=== PATIENT | female | born 1945 | race Caucasian/White ===

== ENCOUNTER → 2017-11-18 | Outpatient (CLI) | payer MEDICARE, OTHER | END | disposition home or self-care (01) | LOC: PCVCIMAG 16:00 | DX: I65.23 Occlusion and stenosis of bilateral carotid arteries (principal); I63.9 Cerebral infarction, unspecified; E78.00 Pure hypercholesterolemia, unspecified; I45.10 Unspecified right bundle-branch block; E11.9 Type 2 diabetes mellitus without complications; I35.0 Nonrheumatic aortic (valve) stenosis; R09.89 Other specified symptoms and signs involving the circulatory and respiratory systems; Z79.82 Long term (current) use of aspirin; Z79.899 Other long term (current) drug therapy | CPT/HCPCS: 80061; 93005; 93880; G0463 ==

== ENCOUNTER → 2017-11-28 | Outpatient (CLI) | payer MEDICARE, OTHER ==
[~2017-11-28] MED LIST: REGADENOSON 0.4 MG/5 ML DISP.SYRIN. IV ONE
--- NOTE | 2017-12-01 17:21 | PCVCIMAG ---
APPROVED REPORT Imaging Protocol: Rest Tc-99m/Stress Tc-99m 1 day Study performed: 11/28/2017 09:17:02 Indication: Chest pain, RBBB, HTN Patient Location: Out-Patient Stress Nurse: Mena Henson RN [place] Tech:MAULIK Lorenzo Ht: 5 ft 8 in Wt: 240 lbs BSA: 2.21 m2 HR: 67 bpm BP: 182/76 mmHg BMI: 36.4 Medical History Medications: Aspirin, atorvastatin, glyburide, metformin, lisinopril Allergies: No known drug allergies Cardiac Risk Factors: Age, HTN, Hyperlipidemia, DM, CVD, Pretest Chest Pain Characteristics: No chest pain Physical Disabilities: Knees Resting Data Rest SPECT myocardial perfusion imaging was performed in supine position 45 minutes following the intravenous injection of 10.5 mCi of Tc-99m Sestamibi. Time of rest injection: 914 Date: 11/28/2017 Administration Route: IV Administration Site: Left AC Pharmacologic Stress Pharmacologic stress test was performed by injecting Regadenoson 0.4 mg IV push over 10-15 seconds immediately followed by the intravenous injection of 33.8 mCi of Tc-99m Sestamibi. Time of stress injection: 5 Date: 11/28/2017 Administration Route: IV Administration Site: Left AC Gated Stress SPECT was performed 45 minutes after stress injection. The images were gated to evaluate regional wall motion and calculate left ventricular ejection fraction. Stress Test Details Stress Test: Pharmacologic stress testing performed using 0.4 mg of regadenoson per 5 mL given IV over 10 seconds. Reason for pharmacologic stress test: KNEE. HRMax Heart Rate (APMHR): 148 bpm Resting HR: 67 bpmTarget HR (85% APMHR): 125 bpm Max HR Achieved: 87 bpm % of APMHR: 58 Recovery HR: 81 bpm BP Resting BP: 182/76 mmHg Recovery BP: 156/66 mmHg ECG Resting ECG: SR with R BBB Stress ECG: SR with R BBB Arrhythmia: PVCs Recovery ECG: SR with R BBB Clinical Reason for Termination: Completed protocol Stress Symptoms: Nausea, Headache, Lightheaded Exercise duration: 0 min 55 sec Symptoms resolved with caffeine. Stress ECG Conclusion ECG: Non-ischemic Study Quality Study: Good Study Data Post stress, the left ventricular ejection was 60%.. SSS: 4 SRS: 14 SDS: 0 TID = 0.92. Perfusion No evidence of stress induced ischemia. 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 Wall Motion Normal left ventricular size and function with no regional wall motion abnormalities. Nuclear Conclusion No evidence of stress induced ischemia. 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 Normal left ventricular size and function with no regional wall motion abnormalities. Post stress, the left ventricular ejection was 60%. No prior study available for comparison. Interpreted by: Tee Lazo MD Electronically Approved: 11/28/2017 12:40:59 <Conclusion> ECG: Non-ischemic
== END | disposition home or self-care (01) ==
LOC: PCVCIMAG 14:28
PROVIDERS: ATTEND Internal Medicine Cardiovascular Disease
DX: I10 Essential (primary) hypertension (principal); I45.10 Unspecified right bundle-branch block
CPT/HCPCS: 78452; 93017; A9500; J2785

== ENCOUNTER → 2018-07-31 | Outpatient (CLI) | payer MEDICARE, OTHER | END | disposition home or self-care (01) | LOC: PCVCCLINIC 13:00 | PROVIDERS: ATTEND Internal Medicine Cardiovascular Disease | DX: I10 Essential (primary) hypertension (principal); E78.00 Pure hypercholesterolemia, unspecified; E11.9 Type 2 diabetes mellitus without complications; I63.9 Cerebral infarction, unspecified; I35.0 Nonrheumatic aortic (valve) stenosis; Z79.82 Long term (current) use of aspirin | CPT/HCPCS: 36415; 80061; 93005; G0463 ==

== ENCOUNTER → 2019-02-12 | Outpatient (CLI) | payer MEDICARE, OTHER ==
--- NOTE | 2019-02-12 14:42 | PCVCIMAG ---
APPROVED REPORT Study performed: 02/12/2019 09:34:21 EXAM: Comprehensive 2D, Doppler, and color-flow Echocardiogram Patient Location: Echo lab Status: routine BSA: 2.21 HR: 73 bpmBP: 124/72 mmHg Rhythm: NSR Other Information Study Quality: Adequate Risk Factors: Cardiac Risk Factors: HTN, DM Indications Abnormal ECG obesity 2D Dimensions IVSd: 9.77 (7-11mm)LVOT Diam: 20.68 (18-24mm) LVDd: 39.97 mm PWd: 9.39 (7-11mm)Ascending Ao: 32.67 (22-36mm) LVDs: 31.92 (25-40mm) Left Atrium: 35.02 (27-40mm) Aortic Root: 31.59 mm LV Single Plane 4CH: 43.90 % LV Single Plane 2CH: 44.45 % Biplane EF: 45.0 % Volumes Left Atrial Volume (Systole) Single Plane 4CH: 52.15 mLSingle Plane 2CH: 54.66 mL LA ESV Index: 73.00 mL/m2 Aortic Valve AoV Peak Kody.: 1.96 m/s AO Peak Gr.: 15.40 mmHgLVOT Max P.10 mmHg AO Mean Gr.: 8.92 mmHgLVOT Mean P.88 mmHg AO V2 Mean: 1.43 m/sLVOT Max V: 0.93 m/s AO V2 VTI: 43.16 cmLVOT Mean V: 0.66 m/s JENNIE (VTI): 1.66 [id number] V1 VTI: 21.36 cm JENNIE Vmax: 1.58 cm2 SV (LVOT): 71.71 mL Mitral Valve E/A Ratio: 0.6 MV Decel. Time: 243.86 ms MV E Max Kody.: 0.63 m/s MV A Kody.: 1.08 m/s IVRT: 110.73 ms Pulmonary Valve PV Peak Kody.: 0.96 m/sPV Peak Gr.: 3.71 mmHg Pulmonary Vein P Vein S: 0.32 m/sP Vein A: 0.59 m/s P Vein D: 0.42 m/sP Vein A Dur.: 152.2 msec P Vein S/D Ratio: 0.76 Tricuspid Valve TR Peak Kody.: 2.26 m/s TR Peak Gr.: 20.39 mmHg Left Ventricle The left ventricle is normal size. There is normal LV segmental wall motion. There is normal left ventricular wall thickness. Left ventricular systolic function is normal. The left ventricular ejection fraction is within the normal range. LVEF is 50-55%. Grade I - abnormal relaxation pattern. Right Ventricle The right ventricle is normal size. The right ventricular systolic function is normal. Atria The left atrium size is normal. The right atrium size is normal. Aortic Valve Mild aortic valve sclerosis. Trace aortic regurgitation. There is no aortic valvular stenosis. Mitral Valve Moderate posterior mitral annular calcification. Normal mitral valve leaflets. There is no mitral valve regurgitation noted. No evidence of mitral valve stenosis. Tricuspid Valve The tricuspid valve is normal in structure. Trace tricuspid regurgitation with PAP of 27 mmHg. Pulmonic Valve The pulmonary valve is normal in structure. Trace pulmonic regurgitation. Great Vessels The aortic root is normal in size. IVC is normal in size and collapses >50% with inspiration. Pericardium There is no pericardial effusion. There is no pleural effusion. <Conclusion> The left ventricle is normal size. LVEF is 50-55%. Grade I - abnormal relaxation pattern. The right ventricle is normal size. The left atrium size is normal. Mild aortic valve sclerosis. Trace aortic regurgitation. There is no aortic valvular stenosis. Moderate posterior mitral annular calcification. Normal mitral valve leaflets. There is no mitral valve regurgitation noted. Trace tricuspid regurgitation with PAP of 27 mmHg. The aortic root is normal in size. There is no pericardial effusion.
== END | disposition home or self-care (01) ==
LOC: PCVCIMAG 09:35
PROVIDERS: ATTEND Internal Medicine Cardiovascular Disease
DX: I08.0 Rheumatic disorders of both mitral and aortic valves (principal); R94.31 Abnormal electrocardiogram [ECG] [EKG]; I10 Essential (primary) hypertension; E78.00 Pure hypercholesterolemia, unspecified; E11.9 Type 2 diabetes mellitus without complications; I63.9 Cerebral infarction, unspecified; E66.8 Other obesity; Z85.42 Personal history of malignant neoplasm of other parts of uterus; Z90.710 Acquired absence of both cervix and uterus; Z72.89 Other problems related to lifestyle; Z79.899 Other long term (current) drug therapy
CPT/HCPCS: 36415; 80061; 93005; 93306; G0463